=== PATIENT | female | born 1970 | race Caucasian/White ===

== ENCOUNTER → 2023-07-25 17:02 | Outpatient (REF) | payer OTHER, SELFPAY | LOC: WDC 17:02 | PROVIDERS: ATTENDING PHYSICIAN Nurse Practitioner Primary Care; FAMILY PHYSICIAN Family Medicine | DX: Z12.31 Encounter for screening mammogram for malignant neoplasm of breast (principal); Z12.39 Encounter for other screening for malignant neoplasm of breast | CPT/HCPCS: 77063; 77067 ==

== ENCOUNTER → 2024-08-16 15:38 | Outpatient (REF) | payer OTHER, SELFPAY | LOC: WDC 15:38 | PROVIDERS: ATTENDING PHYSICIAN Obstetrics & Gynecology | DX: Z12.31 Encounter for screening mammogram for malignant neoplasm of breast (principal) | CPT/HCPCS: 77063; 77067 ==